=== PATIENT | male | born 2000 | race Caucasian/White ===

== ENCOUNTER 2021-06-25 14:21 | Emergency (ER) | payer OTHER ==
[~2021-06-25] VITALS: Ht 167.6 cm; Wt 63.7 kg
[2021-06-25 16:23] LABS: BASO # 0.1 10^3/uL (0.0-0.2); BASO % 0.6 % (0.0-1.0); EOS # 0.2 10^3/uL (0.0-0.5); EOS % 1.6 % (0.0-3.0); HEMATOCRIT 45.2 % (42.0-52.0); HEMOGLOBIN 15.5 g/dl (13.5-17.5); LYMPH # 3.1 10^3/uL (1.5-5.0); MEAN CORPUSCULAR HEMOGLOBIN 29.8 pg (27.0-33.0); MEAN CORPUSCULAR HGB CONC 34.3 g/dl (32.0-36.5); MEAN CORPUSCULAR VOLUME 86.9 fl (80.0-96.0); MONO # 1.2 10^3/uL (0.0-0.8); MONO % 8.7 % (2.0-8.0); NEUTROPHILS # 9.4 10^3/uL (1.5-8.5); NEUTROPHILS % 66.7 % (36.0-66.0); PLATELET COUNT, AUTOMATED 390 10^3/uL (150-450); WHITE BLOOD COUNT 14.1 10^3/uL (4.0-10.0)
--- NOTE | 2021-06-25 16:29 | REP ---
INDICATION: tachycardia, short of breath. COMPARISON: None. TECHNIQUE: Upright PA and lateral chest images were obtained. FINDINGS: The lungs are clear. The heart borders, mediastinum and pulmonary vascular pattern normal. The upper abdominal bowel gas pattern is normal. IMPRESSION: No evidence of acute cardiopulmonary pathology. <Electronically signed by Justin Huynh > 06/25/21 [id number]
[2021-06-25 16:47] LABS: ALBUMIN 4.3 GM/DL (3.2-5.2); ALT/SGPT 33 U/L (12-78); BILIRUBIN,DIRECT 0.2 MG/DL (0.0-0.2); BILIRUBIN,TOTAL 0.8 MG/DL (0.2-1.0); BLOOD UREA NITROGEN 19 MG/DL (7-18); CALCIUM LEVEL 10.3 MG/DL (8.5-10.1); CARBON DIOXIDE LEVEL 28 MEQ/L (21-32); CHLORIDE LEVEL 102 MEQ/L (98-107); CREATININE FOR GFR 1.09 MG/DL (0.70-1.30); GLUCOSE, FASTING 84 MG/DL (70-100); POTASSIUM SERUM 4.5 MEQ/L (3.5-5.1); SODIUM LEVEL 139 MEQ/L (136-145); TOTAL PROTEIN 8.6 GM/DL (6.4-8.2)
[2021-06-25 17:04] LABS: RSV AMPLIFICATION NEGATIVE (NEGATIVE)
--- NOTE | 2021-06-25 17:27 | ECGEPIP ---
[facility] - ED Test Date: 2021-06-25 Pat Name: IZZY MCGUIRE Department: Room: - Gender: Male Kit Assembler: [place] : 2000 Requested By: Mary Wilburn Order Number: [id number] Reading MD: Mary Wilburn Measurements Intervals [place] Rate: 123 P: 83 MD: 126 QRS: 91 QRSD: 84 T: 19 QT: 294 QTc: 420 Interpretive Statements Sinus tachycardia Biatrial enlargement Rightward axis Pulmonary disease pattern Nonspecific ST abnormality No prior Electronically Signed on 06-25-2021 17:26:49 EST by Mary Wilburn
[2021-06-25 17:36] VITALS: BP 143/64
[2021-06-25] MEDS ORDERED: holter monitor EXT (17:55)
== END 2021-06-25 18:11 | disposition home or self-care (01) ==
LOC: M ED 14:21
DX: R00.2 Palpitations (principal); R00.0 Tachycardia, unspecified; F17.200 Nicotine dependence, unspecified, uncomplicated